=== PATIENT | male | born 1975 | race Caucasian/White ===

== ENCOUNTER 2021-11-20 11:04 | Observation (INO) | payer BC, MEDICAID, SELFPAY ==
[2021-11-20] VITALS (14 sets, daily range): BP systolic 146–165; BP diastolic 90–110; PULSE 56–80; RESP 12–18; TEMP 36.6–36.9; O2SAT 97–100; BMI 27.7
--- NOTE | ~2021-11-20 | CT_ITS ---
EXAMINATION: CTA chest DATE: 11/20/2021 16:11 INDICATION: Severe chest pain. Evaluate for thoracic aortic dissection or aneurysm TECHNIQUE: Computed tomography angiography (CTA) of the chest was performed with 100 mL Omnipaque-300 intravenous contrast timed to evaluate the pulmonary arteries. Coronal maximum intensity projection 3D-reconstructions were created by the technologist. Automated exposure control and iterative reconst ruction technique were employed. Exam dose: 450.01 mGy-cm total exam DLP. COMPARISON: 11/16/2021 PA and lateral chest FINDINGS: No thoracic aortic aneurysm or dissection. The proximal to mid abdominal aorta is of normal caliber. Normal heart size. Left main and anterior descending coronary calcifications. No pericardial or pleur al effusion. No hilar or mediastinal mass lesion or lymphadenopathy. Normal size and homogeneous enhancement of th e thyroid gland. No pulmonary infiltrate or consolidation or pulmonary mass lesion is noted. Normal morphology of the adrenal glands. Prominent degenerative disc disease including prominent posterior spurring at C6-7. Degenerative spur ring of the thoracic and lumbar spine. No suspicious osteolytic or osteoblastic lesions are noted. IMPRESSION: No evidence of thoracic aortic aneurysm or dissection Reviewed, dictated and finalized at [facility]. Reviewed, dictated and finalized at location [facility].
--- NOTE | ~2021-11-20 | XR_ITS ---
EXAMINATION: XR chest 2V DATE: 11/20/2021 11:36 INDICATION: Left-sided chest pain TECHNIQUE: PA and lateral views of the chest were obtained. COMPARISON: None FINDINGS: The lungs are clear with no focal airspace opacities, pulmonary edema, pleural effusion or pneumothor ax. The cardiomediastinal silhouette is normal. Mild to moderate thoracic spondylosis. IMPRESSION: 1. No acute cardiopulmonary disease. Reviewed, dictated and finalized at location [facility].
--- NOTE | 2021-11-20 11:06 | ECG_ITS ---
Measurements Intervals [place] Rate: 58 P: 43 [place]: 222 QRS: -23 QRSD: 122 T: -9 QT: 412 QTc: 406 Interpretive Statements SINUS BRADYCARDIA WITH FIRST DEGREE AV BLOCK BORDERLINE LEFT AXIS DEVIATION [QRS AXIS < -20] MODERATE INTRAVENTRICULAR CONDUCTION DELAY [110+ ms QRS DURATION] ABNORMAL ECG NO PREVIOUS ECG AVAILABLE FOR COMPARISON Electronically Signed On 11-20-2021 16:48:18 CDT by Terrell Del Castillo M.D.
[2021-11-20 11:27] LABS: Basophils Absolute Auto 0.1 K/mm3 (0.0-0.1); Basophils Percent Auto 0.9 % (0.2-1.2); Eosinophils Absolute Auto 0.2 K/mm3 (0-0.3); Hemoglobin 14.8 g/dL (14.0-18.0); Immature Granulocyte Absolute 0.02 K/mm3 (0.00-0.031); Immature Granulocyte Percent A 0.3 % (0-0.5); Lymphocytes Absolute Auto 2.58 K/mm3 (0.9-3.2); Lymphocytes Percent Auto 33.7 % (18.3-44.2); Mean Corpuscular HGB Conc 34.4 g/dl (32-36); Mean Corpuscular Hemoglobin 32.2 pg (26-34); Mean Corpuscular Volume 93.7 fl (80-100); Mean Platelet Volume 9.2 fl (7.4-10.4); Monocytes Absolute Auto 0.6 K/mm3 (0.1-0.6); Monocytes Percent Auto 7.2 % (2.6-8.5); Neutrophils Absolute Auto 4.3 K/mm3 (1.3-6.7); Neutrophils Percent Auto 55.9 % (45.5-73.1); Platelet Count Result 342 k/mm3 (150-375); Red Blood Count 4.59 M/mm3 (4.6-6.20); Red Cell Distribution Width 12.8 % (11.5-14.5); White Blood Count 7.7 K/mm3 (4.5-10.0)
[2021-11-20] MEDS: ASPIRIN 81 MG CHEWABLE TABLET 324 MG PO (11:42)
[2021-11-20 11:44] LABS: INR 1.1; Partial Thromboplastin Time 28.5 SECONDS (22.3-36.8); Prothrombin Time 13.3 Seconds (11.1-14.7)
[2021-11-20 11:46] LABS: Alanine Aminotransferase 17 U/L (6-50); Albumin Level 4.5 g/dL (3.5-5.1); Alkaline Phosphatase 74 U/L (38-126); Anion Gap 10 mmol/L (8-16); Aspartate Amino Transferase 19 U/L (17-59); Bilirubin,Total 0.6 mg/dL (0.2-1.3); Blood Urea Nitrogen 19 mg/dL (9-20); Calcium 8.7 mg/dL (8.4-10.2); Carbon Dioxide 25 mmol/L (22-30); Chloride 104 mmol/L (98-107); Estimated CRCL calculation 95 ml/min; Estimated Glomerular Filt Rate > 60; Glucose 126 mg/dL (65-110); Lipase 44 U/L (23-300); Potassium 3.5 mmol/L (3.4-5.0); Sodium 139 mmol/L (137-145)
[2021-11-20 11:58] LABS: Troponin I < 0.012 ng/mL (0.000-0.034)
--- NOTE | 2021-11-20 12:15 | ED.CHESTPAIN ---
HPI - Chest Pain General Chief Complaint: Chest Pain Stated Complaint: chest pain Time Seen by Provider: 11/20/21 11:35 Source: patient Mode of arrival: ambulatory Limitations: no limitations History of Present Illness HPI narrative: Patient is a 46-year-old male who presents to the ED with report of left-sided chest pain. Patient reports he has been experiencing elevated blood pressures over the last 3 days. He checks this at home. He said the highest it has been at home was 190s over 140s. He does take amlodipine, lisinopril, metoprolol daily. He has not missed any doses. He notified his primary about this and was advised to take an additional Norvasc 10mg in the morning if his blood pressure remained elevated. He did take 2 Norvasc today, 20 mg total. He denies having any chest pain over the last 3 days, but does report being woken up by the pain around 5:30 AM this morning. He describes the pain as a pressure in his left-sided chest, radiating to his left shoulder. The pain has been constant since then. Reports pain is worse with laying flat. Denies significant aggravation with exertion. Pain did begin to alleviate slightly approximately 1 hour ago. He did not take anything for this, but was given aspirin 324 mg upon arrival to the ED. He typically takes an aspirin 81 mg daily, but did not take this yet today. He denies any diaphoresis, nausea, shortness of breath associated with the pain. No abdominal pain, headache, vision changes, fever, chills, recent cough or cold symptoms, BLE pain or edema. Patient had a stress test 2 yrs ago at an outside facility, which was normal at that time. Hx of HTN, denies Hx of HLD, DM. + FHX of cardiac disease in mother. + smoking, 1 ppd. Related Data Home Medications Medication Instructions Recorded Confirmed amlodipine 10 mg tablet (Norvasc) 10 mg PO DAILY 11/20/21 11/20/21 lisinopril 10 mg tablet 10 mg PO DAILY 11/20/21 11/20/21 metoprolol succinate 25 mg 25 mg PO DAILY 11/20/21 11/20/21 tablet,extended release 24 hr Allergies Allergy/AdvReac Type Severity Reaction Status Date / Time No Known Allergies Allergy Unverified 11/20/21 11:39 Review of Systems Review of Systems: CONSTITUTIONAL: Denies fever, chills, or sweats. EYES: Denies visual changes. ENT: Denies rhinorrhea, congestion, sore throat. CARDIOVASCULAR: Reports L sided chest pressure, radiating to L shoulder. Denies palpitations or BLE edema. RESPIRATORY: Denies cough or dyspnea. GASTROINTESTINAL: Denies abdominal pain, nausea, vomiting, or diarrhea. MUSCULOSKELETAL: Denies back pain, BLE pain. NEUROLOGIC: Denies headache, numbness, or weakness. All systems reviewed & are unremarkable except as noted in HPI and below PMFSH Past Medical History Medical History Hypertension Tobacco abuse Surgical History Surgical History (Updated 11/20/21 @ 12:21 by Zoie Waldron PA-C) No pertinent past surgical history Family History Family History Mother Heart disease Social History Social History Social History: Surrogate decision maker: Mariela Valentino, mother. Code status: Full code. Smoking packs per day: 1 Smoking cigarettes per day: 20.0 Smoking status: Current every day smoker Tobacco type: cigarettes Exam Narrative: GENERAL: Well appearing, well-nourished, non-toxic, in no acute distress. HEAD: Normocephalic, atraumatic. NECK: Supple. No adenopathy, no masses. RESPIRATORY: Airway patent, respirations nonlabored. Clear to auscultation bilaterally, no rales, rhonchi, wheezing. CARDIOVASCULAR: Regular rate and rhythm without murmurs, rubs, or gallops. Peripheral pulses 2+ and equal bilaterally. ABDOMINAL: Soft, nontender, nondistended, no hepatosplenomegaly. Normoactive BS. MUSCULOSKELETAL: Moves all extremities. Strength/ROM intact withou
[2021-11-20] MEDS: NITROGLYCERIN SL 0.4 MG TABLET SUBLINGUAL (14:01)
--- NOTE | 2021-11-20 14:01 | PC.NURSE ---
Pt given 1 SL Nitro Tab at this time, rates pain a 3-4/10.
[2021-11-20 14:31] LABS: Troponin I < 0.012 ng/mL (0.000-0.034)
--- NOTE | 2021-11-20 15:24 | ECG_ITS ---
Measurements Intervals [place] Rate: 59 P: 33 [place]: 177 QRS: -12 QRSD: 126 T: -3 QT: 397 QTc: 394 Interpretive Statements SINUS BRADYCARDIA NONSPECIFIC INTRAVENTRICULAR CONDUCTION DELAY COMPARED TO ECG 11/20/2021 11:09:37 [place] INTERVAL IS NOW NORMAL Electronically Signed On 11-20-2021 16:57:38 CDT by Terrell Del Castillo M.D.
--- NOTE | 2021-11-20 15:50 | PM.IMHP ---
H&P: HPI History of Present Illness Date/Time: 11/20/21 15:50 Chief Complaint: Chest pain and elevated blood pressure Narrative: This is a 46-year-old male smoker with history of peptic ulcer, kidney stones, and hypertension who presented to the emergency department from home for evaluation of chest pain and elevated blood pressure. His blood pressures have been running in the 190s over 140s the last several days and after speaking with his primary care provider, he was advised to take an additional dose of amlodipine in the morning which has helped somewhat. This morning at about 05:30 he was wakened from sleep with a pressure-like discomfort in the left side of the chest which radiated to the left shoulder. The pain has been nearly constant since that time and seems to be worse when lying flat. Sublingual nitroglycerin given in the emergency department seemed to help the discomfort however it has returned and nitropaste is not helping with the pain at all. On exam he has significant reproducible tenderness to palpation and he was given 1 dose of IV Toradol with some improvement. He does have some mild shortness of breath but it seems as though he is not taking a deep breath as it causes the pain to be worse. He denies exertional chest pain, palpitations, resting shortness of breath, dizziness, diaphoresis, syncope, near syncope, nausea, and vomiting. No abdominal pain, epigastric pain, belching, or bloating. He denies melena and hematochezia. He has not had any recent injuries and he denies heavy lifting. Of note he had a stress test done 2 years ago which was normal, per patient report. Review of Systems Review of Systems: Twelve systems were reviewed and are negative except for as per HPI. COUNT INCLUDES THE [facility] Past Medical History Medical History (Updated 11/20/21 @ 23:30 by Clara Wu PA-C) Anxiety Hypertension Kidney stones Peptic ulcer Tobacco abuse Surgical History Surgical History No pertinent past surgical history Family History Family History Mother Heart disease Social History Social History Social History: Surrogate decision maker: Mariela Valentino, mother. Code status: Full code. Smoking packs per day: 1 Smoking cigarettes per day: 20.0 Smoking status: Current every day smoker Alcohol intake: never Substance use: never Spiritual care concerns: No Meds Home Medications and Allergies Home Medications Medication Instructions Recorded Confirmed Type amlodipine 10 mg tablet (Norvasc) 10 mg PO DAILY 11/20/21 11/20/21 History lisinopril 10 mg tablet 10 mg PO DAILY 11/20/21 11/20/21 History metoprolol succinate 25 mg 25 mg PO DAILY 11/20/21 11/20/21 History tablet,extended release 24 hr Allergies Allergy/AdvReac Type Severity Reaction Status Date / Time No Known Allergies Allergy Unverified 11/20/21 11:39 Vital Signs Vital Signs - 24 hr 11/20/21 11:08 11/20/21 11:37 11/20/21 12:53 Temperature 98.4 F Pulse Rate 63 62 56 L Respiratory Rate 18 18 12 Blood Pressure 160/102 H 164/102 H 154/97 H Pulse Oximetry 98 99 99 Oxygen Delivery Room Air 11/20/21 14:02 11/20/21 15:10 Temperature Pulse Rate 58 L 57 L Respiratory Rate 15 15 Blood Pressure 161/102 H 151/98 H Pulse Oximetry 99 99 Oxygen Delivery Exam Narrative: General: Well-developed male in the semi-[place]um[place] position in bed in no distress. Weight: 82.7 kg. BMI: 27.7. HEENT: PERRL, EOMI. Sclerae anicteric. Oral mucosa moist. Oropharynx clear. Neck: Supple. No JVD or lymphadenopathy. Respiratory: Lungs are clear to auscultation bilaterally. Cardiovascular: Regular rate and rhythm with S1-S2. Chest: Significant, reproducible tenderness to palpation over the left anterior chest and into the shoulder. Gastrointestinal: Abdomen is
[2021-11-20] MEDS: NITROGLYCERIN OINTMENT 1 INCH DOSE TRANSDERM (16:18)
[2021-11-20] MEDS: BELLADONNA ALK/PHENOB ELIX 10 ML, MAG HYDROX/ALUMINUM HYD/SIMETH 30 ML, LIDOCAINE HCL 2... PO (16:46)
--- NOTE | 2021-11-20 17:17 | ADMGEN ---
This patient, Dewayne Valentino, was admitted to IMU Room 206-01 at 1656. Patient/family oriented to hospital policies and general routines including ID bracelet, bed and alarms, visiting hours, pain management, procedures, bathroom and other care routines, personal items, smoking policy, room service/diet, and visiting hours. Information on how to activate the Rapid Response Team has been discussed. Patient/Family are encouraged to report perceived risks to care and to ask questions if they do not understand what they are told or what they should do.
[2021-11-20 17:49] LABS: Troponin I < 0.012 ng/mL (0.000-0.034)
[2021-11-20] MEDS: KETOROLAC 30 MG/ML VIAL (*BKC) IV PUSH (21:51)
[2021-11-21] VITALS (8 sets, daily range): BP systolic 125–162; BP diastolic 95–99; PULSE 49–81; RESP 16–20; TEMP 36.4–36.7; O2SAT 99
[2021-11-21 05:19] LABS: Hematocrit 41.1 % (42.0-52.0); Hemoglobin 14.5 g/dL (14.0-18.0); Mean Corpuscular HGB Conc 35.3 g/dl (32-36); Mean Corpuscular Hemoglobin 32.7 pg (26-34); Mean Corpuscular Volume 92.6 fl (80-100); Mean Platelet Volume 9.3 fl (7.4-10.4); Platelet Count Result 317 k/mm3 (150-375); Red Blood Count 4.44 M/mm3 (4.6-6.20); Red Cell Distribution Width 12.4 % (11.5-14.5); White Blood Count 8.5 K/mm3 (4.5-10.0)
[2021-11-21 05:25] LABS: Anion Gap 5 mmol/L (8-16); Blood Urea Nitrogen 17 mg/dL (9-20); Calcium 8.7 mg/dL (8.4-10.2); Carbon Dioxide 30 mmol/L (22-30); Chloride 103 mmol/L (98-107); Cholesterol 173 mg/dL (0-200); Estimated CRCL calculation 85 ml/min; Estimated Glomerular Filt Rate > 60; Glucose 94 mg/dL (65-110); HDL Direct 47 mg/dL; Magnesium 2.6 mg/dL (1.6-2.3); Potassium 3.3 mmol/L (3.4-5.0); Sodium 138 mmol/L (137-145); Triglycerides 114 mg/dL (<150)
[2021-11-21 05:35] LABS: LDL Cholesterol Direct 83 mg/dL
[2021-11-21] MEDS: METOPROLOL SUCCINATE EXT REL 25 MG TABCR PO (08:38)
[2021-11-21] MEDS: lisinopriL 10 MG TABLET PO (08:38)
[2021-11-21] MEDS: amLODIPine BESYLATE 5 MG TABLET 10 MG PO (08:38)
--- NOTE | 2021-11-21 10:34 | PM.CNCAR ---
Assessment and Plan Assessment and plan (1) Chest pain: Qualifiers: Chest pain type: unspecified Qualified Code(s): R07.9 - Chest pain, unspecified Code(s): R07.9 - Chest pain, unspecified Status: Acute Plan This is a 46-year-old man being seen with the diagnosis of chest pain. It seems clear to me that the chest pain is not mediated by myocardial ischemia as he has ongoing pain now for more than 24 hours with absolutely no evidence of acute coronary syndrome with serial troponin levels. The pain is character and behavior is not typical of her suggestive of myocardial ischemia. At this point he does not require cardiac evaluation be on this. He should be treated symptomatic Aneta in my opinion. This was this and his disposition will be deferred to the primary team. I do not anticipate following him after this consultation Terrell Del Castillo MD [facility] History of Present Illness History of Present Illness Consult date/time: 11/21/21 10:34 Consult reason: chest pain Reason For Visit: Chest Pain Narrative: This is a 46-year-old man that I am seeing at the request of the hospitalist because of chest pain. He does not have any prior history of cardiac problems of any kind. He does have longstanding hypertension for about 12-13 years. The patient was in his home where he suddenly noticed the onset of chest pain yesterday morning at about 5:00 a.m. in the morning. He states that he had the sudden onset of a sharp sometimes pressure-like sensation in the upper substernal region that radiated to the left upper quadrant of his chest. He began to have the symptoms yesterday morning he noticed that it was worse if he would take a breath in and out. The pain was moderate to severe in intensity. After have been going on for a while he came to the emergency room for evaluation at the request of his primary care was notified of the symptoms. He sees a primary care physician for management of the hypertension and his blood pressure was also rather high yesterday when he was in this kind of pain. The pain that he is describing was not affected 1 where the other by receiving nitroglycerin in the emergency room. He did receive some Toradol which did improve the pain but did not resolve it. The patient is still has the same sort of pain this morning states he takes a breath in it does hurt more. He a CT of the chest was done ruling out a thoracic aortic dissection. This was negative. He appears to be comfortable upon seeing him in the room but he does states he still has at least moderate 5/10 intensity chest pain. His troponin levels were normal in the emergency room and have remained normal x3 sets. In this setting of seeing him in consultation he normally does not have any symptoms of exertional chest pain pressure or heaviness he denies any symptoms of orthopnea PND or accumulating edema. He has not had a syncopal episode. Risk factors include of course his hypertension and cigarette smoking. He says he is under lot of stress lately because he lost his job and he is going through a divorce with his . Review of Systems Constitutional: Constitutional: Reports no additional constitutional complaints Eyes: Eyes: Reports no additional eye complaints ENT: Reports system reviewed and no additional complaints, except as documented Cardiovascular: Cardiovascular: Reports as per HPI Respiratory: Respiratory: Reports no additional respiratory complaints Gastrointestinal: Gastrointestinal: Reports no additional gastrointestinal complaints Musculoskeletal: Musculoskeletal: Reports as per HPI Integumentary/Breasts: Skin/Breast: Reports system reviewed and no additional complaints, except as docu Neurologic: Reports system reviewed and no additional complaints, except as documented Endocrine: Endocrine: Reports no additional endocrine complaints Hematologic/Lymphatic: Hematologic/Lymphatic: Reports no additional hemat
[2021-11-21] MEDS: POTASSIUM CHLORIDE 20 MEQ PACKET (FOR LIQUID) 40 MEQ PO (11:13)
[2021-11-21] MEDS: LIDOCAINE 5% PATCH 2 PATCH TRANSDERM (12:01)
--- NOTE | 2021-11-21 13:26 | PM.DS ---
DS: Admitting Diagnosis Discharge Date 11/21/2021 Admitting Diagnosis chest pain DS: Discharge Diagnosis Discharge Diagnosis (1) Chest pain: Qualifiers: Chest pain type: unspecified Qualified Code(s): R07.9 - Chest pain, unspecified Code(s): R07.9 - Chest pain, unspecified Status: Acute Assessment and Plan: Pain is reproducible on palpation of the left chest wall. He has rule out for acute coronary syndrome by serial troponins. (2) Hypertension: Code(s): I10 - Essential (primary) hypertension Status: Acute Assessment and Plan: Blood pressures were reviewed and per patient report they have been running high for the last 3 days. They have improved somewhat however he currently has on nitropaste. Continue metoprolol, lisinopril, and amlodipine. Lisinopril can be increased tomorrow if he consistently trends high. (3) Tobacco abuse: Code(s): Z72.0 - Tobacco use Status: Acute Assessment and Plan: Smoking cessation is imperative and was discussed. He declines the need for nicotine patch. DS: Summary Hospital Course Reason for hospitalization: Chief Complaint: Chest pain and elevated blood pressure Narrative: This is a 46-year-old male smoker with history of peptic ulcer, kidney stones, and hypertension who presented to the emergency department from home for evaluation of chest pain and elevated blood pressure. His blood pressures have been running in the 190s over 140s the last several days and after speaking with his primary care provider, he was advised to take an additional dose of amlodipine in the morning which has helped somewhat. This morning at about 05:30 he was wakened from sleep with a pressure-like discomfort in the left side of the chest which radiated to the left shoulder. The pain has been nearly constant since that time and seems to be worse when lying flat. Sublingual nitroglycerin given in the emergency department seemed to help the discomfort however it has returned and nitropaste is not helping with the pain at all. On exam he has significant reproducible tenderness to palpation and he was given 1 dose of IV Toradol with some improvement. He does have some mild shortness of breath but it seems as though he is not taking a deep breath as it causes the pain to be worse. He denies exertional chest pain, palpitations, resting shortness of breath, dizziness, diaphoresis, syncope, near syncope, nausea, and vomiting. No abdominal pain, epigastric pain, belching, or bloating.? He denies melena and hematochezia. He has not had any recent injuries and he denies heavy lifting. Of note he had a stress test done 2 years ago which was normal, per patient report. Hospital Course: patient presented with chest 3 sets of cardiac enzymes are negative and there are no acute changes on EKG patient was seen by music adapter and does not suspect acute coronary syndrome rather his symptoms are atypical and been persisting for 24 hours, patient is clinically stable his symptoms have improved discharge the patient home today. Time Spent with Patient Time attestation: Total time spent providing and/or coordinating discharge services: Exam Narrative: Patient is comfortable, NAD HEENT: eyes are clear and none icteric LUNGS: normal respiratory effort ABD: not distended Lower extremities: no edema SKIN: nonjaundiced Neuro: grossly intact. DS: Data Data Completed and Pending Labs on day of discharge: Labs from last 24 hours 11/21/21 11/21/21 11/20/21 04:42 04:42 17:17 WBC 8.5 RBC 4.44 L Hgb 14.5 Hct 41.1 L MCV 92.6 MCH 32.7 MCHC 35.3 RDW 12.4 Plt Count 317 MPV 9.3 Sodium 138 Potassium 3.3 L Chloride 103 Carbon Dioxide 30 Anion Gap 5 L BUN 17 Creatinine 0.90 Estim Creat Clear Calc 85 Estimated GFR > 60 Glucose 94 Calcium 8.7 Magnesium 2.6 H Troponin I < 0.012
--- NOTE | 2021-11-21 15:26 | PC.NURSE ---
Pt left off unit stable, with mom and all personal belongings. Discharge packet explained and given to pt. No events noted.
== END 2021-11-21 15:25 | disposition home or self-care (01) ==
LOC: ANHED 15:32 → ANHIMU 17:08
PROVIDERS: Physician Assistant; Admitting Provider Student in an Organized Health Care Education/Training Program; Emergency Provider Emergency Medicine; Visit Provider Family Medicine
DX: R07.9 Chest pain, unspecified (principal); I10 Essential (primary) hypertension; F17.210 Nicotine dependence, cigarettes, uncomplicated; Z87.442 Personal history of urinary calculi
CPT/HCPCS: 36415; 71046; 71275; 80048; 80053; 80061; 83690; 83735; 84484; 85025; 85027; 85610; 85730; 93005; 96374; 99285; A9270; G0378; J1885; Q9967

== ENCOUNTER 2023-06-17 15:03 | Emergency (ER) | payer OTHER, SELFPAY ==
[2023-06-17] VITALS (7 sets, daily range): BP systolic 144–185; BP diastolic 98–133; PULSE 72–106; RESP 13–20; TEMP 37.3; O2SAT 98–100
--- NOTE | ~2023-06-17 | US_ITS ---
EXAMINATION: US abdomen limited DATE: 06/17/2023 18:59 INDICATION: Right upper quadrant pain TECHNIQUE: Multiple grayscale and Doppler ultrasound images of the abdomen were obtained. COMPARISON: None available FINDINGS: Bowel gas obscures visualization of the pancreas. The liver is normal with normal echogenic ity and echotexture. No surface nodularity. Normal hepatopetal flow in the main portal vein. The gall bladder is normal with no abnormal wall thickening, pericholecystic fluid or stones. The normal commo n bile duct measures 3 mm. There was no sonographic Brown sign. IMPRESSION: 1. No sonographic correlate for the patient's symptoms. Pancreas obscured by bowel gas. Reviewed, dictated and finalized at location F. ICAL RN LIAISON IMPRESSION: 1. No sonographic correlate for the patient's symptoms. Pancreas obscured by obi wel gas.
--- NOTE | ~2023-06-17 | XR_ITS ---
XR chest 2V DATE: 06/17/2023 15:27 INDICATION: Chest pain TECHNIQUE: 2 views, AP and lateral projections COMPARISON: 11/16/2021 CTA chest 11/20/2021 2 view chest FINDINGS: Normal heart size. No hilar or mediastinal enlargement. No pulmonary infiltrate or consolid ation, pleural effusion or pulmonary vascular congestion or pneumothorax is detected. Mild degenerative spurring of the thoracic spine. IMPRESSION: No active cardiopulmonary disease Reviewed, dictated and finalized at location B. PRESS HAND
--- NOTE | 2023-06-17 15:04 | ECG_ITS ---
Measurements Intervals [place] Rate: 97 P: 55 MD: 197 QRS: -56 QRSD: 117 T: 63 QT: 356 QTc: 453 Interpretive Statements SINUS RHYTHM POSSIBLE LEFT ATRIAL ENLARGEMENT LEFT ANTERIOR FASCICULAR BLOCK BORDERLINE ST-T WAVE ABNORMALITY- HIGH LATERAL LEADS BASELINE ARTIFACT- I, III, AVR, AVL, V6 ABNORMAL ECG COMPARED TO ECG 11/20/2021 15:30:24 SINUS RHYTHM NOW PRESENT LEFT ANTERIOR FASCICULAR BLOCK NOW PRESENT Electronically Signed On 06-17-2023 15:24:23 [employer] by Vladislav Schuster D.O.
[2023-06-17 15:19] LABS: Basophils Absolute Auto 0.1 K/mm3 (0.0-0.1); Basophils Percent Auto 0.5 % (0.2-1.2); Eosinophils Absolute Auto 0.1 K/mm3 (0-0.3); Eosinophils Percent Auto 0.7 % (0-4.4); Hematocrit 45.2 % (42.0-52.0); Hemoglobin 15.9 g/dL (14.0-18.0); Immature Granulocyte Percent A 0.7 % (0-0.5); Lymphocytes Absolute Auto 2.26 K/mm3 (0.9-3.2); Lymphocytes Percent Auto 14.8 % (18.3-44.2); Mean Corpuscular HGB Conc 35.2 g/dl (32-36); Mean Corpuscular Hemoglobin 33.3 pg (26-34); Mean Corpuscular Volume 94.6 fl (80-100); Mean Platelet Volume 8.9 fl (7.4-10.4); Monocytes Absolute Auto 1.1 K/mm3 (0.1-0.6); Neutrophils Absolute Auto 11.7 K/mm3 (1.3-6.7); Neutrophils Percent Auto 76.3 % (45.5-73.1); Platelet Count Result 410 k/mm3 (150-375); Red Blood Count 4.78 M/mm3 (4.6-6.20); Red Cell Distribution Width 12.3 % (11.5-14.5); White Blood Count 15.3 K/mm3 (4.5-10.0)
[2023-06-17 15:28] LABS: Alanine Aminotransferase 21 U/L (6-50); Albumin Level 4.8 g/dL (3.5-5.1); Alkaline Phosphatase 94 U/L (38-126); Anion Gap 11 mmol/L (8-16); Aspartate Amino Transferase 23 U/L (17-59); Bilirubin,Total 0.6 mg/dL (0.2-1.3); Blood Urea Nitrogen 19 mg/dL (9-20); Calcium 9.2 mg/dL (8.4-10.2); Carbon Dioxide 25 mmol/L (22-30); Chloride 105 mmol/L (98-107); Estimated CRCL calculation 105 ml/min; Estimated Glomerular Filt Rate > 60; Glucose 108 mg/dL (65-110); INR 0.9; Lipase 616 U/L (23-300); Potassium 3.7 mmol/L (3.4-5.0); Sodium 141 mmol/L (137-145)
[2023-06-17 15:29] LABS: Partial Thromboplastin Time 28.3 SECONDS (22.3-36.8)
[2023-06-17 15:39] LABS: Troponin I < 0.012 ng/mL (0.000-0.034)
--- NOTE | 2023-06-17 15:56 | ECG_ITS ---
Measurements Intervals [place] Rate: 97 P: 36 [place]: 176 QRS: -48 QRSD: 111 T: 63 QT: 354 QTc: 450 Interpretive Statements SINUS RHYTHM POSSIBLE LEFT ATRIAL ENLARGEMENT LEFT ANTERIOR FASCICULAR BLOCK BASELINE ARTIFACT- I, III, AVR, AVL ABNORMAL ECG COMPARED TO ECG 06/17/2023 15:06:44 NO SIGNIFICANT CHANGES Electronically Signed On 06-17-2023 16:43:12 RN PICU by Vladislav Schuster D.O.
--- NOTE | 2023-06-17 17:54 | ED.CHESTPAIN ---
HPI - Chest Pain General Chief Complaint: Chest Pain Stated Complaint: chest pain Time Seen by Provider: 06/17/23 17:47 History of Present Illness HPI narrative: Patient is a 48-year-old male with history of HTN here with chest pain. Patient notes that he was sitting at his mother's house around 12:30 PM and began having left sided chest pain. He notes it is associated with some nausea and several episodes of vomiting. He notes that it seems to worsen when he takes deep breaths. He has had this type of chest pain in the past, he notes he was admitted for it the last time he was here in the hospital. He had been on a nitroglycerine drip for pain control but it did not touch the pain and it eventually self resolved. He notes that his last stress test was about 6 months ago. No prior cardiac cath. Cardiologists in the past have told him that the pain is likely due to stress. No abdominal pain. He has had a mild cough which seemed to start after the pain began. No congestion, no fever, no chills. No urinary symptoms. Related Data Home Medications Medication Instructions Recorded Confirmed amlodipine 10 mg tablet (Norvasc) 10 mg PO DAILY 11/20/21 11/20/21 lisinopril 10 mg tablet 10 mg PO DAILY 11/20/21 11/20/21 metoprolol succinate 25 mg 25 mg PO DAILY 11/20/21 11/20/21 tablet,extended release 24 hr Allergies Allergy/AdvReac Type Severity Reaction Status Date / Time No Known Allergies Allergy Verified 06/17/23 15:03 Review of Systems Review of Systems: All systems reviewed & are unremarkable except as noted in HPI and below [facility] Past Medical History Medical History (Updated 06/17/23 @ 22:30 by Anika Kelly MD) Anxiety Hypertension Kidney stones Peptic ulcer Tobacco abuse Surgical History Surgical History No pertinent past surgical history Family History Family History Mother Heart disease Social History Social History Social History: Surrogate decision maker: Mariela Chelsy, mother. Code status: Full code. Smoking packs per day: 1 Smoking cigarettes per day: 20.0 Smoking status: Current every day smoker Alcohol intake: never Substance use: never Spiritual care concerns: No Exam Narrative: GENERAL: Well-appearing, well-nourished, and in no acute distress. HEAD: Normocephalic, atraumatic. EYES: PERRLA and EOMI. ENT: Nares clear. Mucous membranes moist. NECK: Supple. CHEST: Clear to auscultation. No respiratory distress. HEART: Regular rate and rhythm. Normal peripheral pulses. ABDOMEN: Soft, nontender, nondistended. Negative Brown sign. EXTREMITIES: Normal range of motion. No edema. SKIN: Warm, dry, no rash. NEURO: No focal deficits. Alert and oriented x3. PSYCH: Normal mood and affect. Course Course Emergency Course: Chart review performed. Patient is here with chest pain. Triage vitals show HTN, tachycardic, otherwise normal. Triage workup reviewed. WBC elevated at 15.3, electrolytes normal, Initial troponin normal. Lipase elevated at 616. Patient seen evaluated, nontoxic appearing. No reproducible abdominal tenderness or chest tenderness. Awaiting repeat troponin, will add on D-dimer given pleuritic nature of the pain and his age, will additionally do ultrasound right upper quadrant given elevated lipase. Morphine and nitro ordered. D-dimer negative. Repeat troponin negative. US negative. HEART score of 2. Will reevaluate. No pain improvement with morphine or nitroglycerine. I discussed all results with patient. Advised me that all of these symptoms have occurred in the past due to his anxiety and stress. He notes he has had extensive conversations with cardiology regarding starting anti anxiety medications as this is likely contributing to his blood pressure but he has refused in the past. Agreeable
[2023-06-17] MEDS: ASPIRIN 81 MG CHEWABLE TABLET 324 MG PO (17:57)
[2023-06-17] MEDS: NITROGLYCERIN SL 0.4 MG TABLET SUBLINGUAL (18:58)
--- NOTE | 2023-06-17 19:03 | PC.NURSE ---
2nd dose of nitro administered sublingual 1902
[2023-06-17] MEDS: MORPHINE SULFATE (*CRX) 4 MG/ML INJ IV PUSH (19:04)
[2023-06-17] MEDS: ONDANSETRON INJ 4 MG/2 ML VIAL IV PUSH (19:04)
--- NOTE | 2023-06-17 19:07 | PC.NURSE ---
3rd dose of nitro administered sublingual at 1908
[2023-06-17 19:35] LABS: Troponin I < 0.012 ng/mL (0.000-0.034)
--- NOTE | 2023-06-17 21:21 | ECG_ITS ---
Measurements Intervals [place] Rate: 70 P: 46 ME: 208 QRS: -30 QRSD: 130 T: 15 QT: 409 QTc: 442 Interpretive Statements SINUS RHYTHM LEFT AXIS DEVIATION INTRAVENTRICULAR CONDUCTION DELAY BASELINE ARTIFACT- I, III, AVR, AVL, V1-V2 BORDERLINE ECG COMPARED TO ECG 06/17/2023 15:59:00 NO SIGNIFICANT CHANGES Electronically Signed On 06-18-2023 8:13:32 [employer]ICE PRESIDENT by Vladislav Schuster D.O.
[2023-06-17] MEDS: diazePAM (*CRX) 5 MG TABLET 10 MG PO (21:34)
== END 2023-06-17 22:42 | disposition home or self-care (01) ==
PROVIDERS: Emergency Provider Student in an Organized Health Care Education/Training Program
DX: R07.89 Other chest pain (principal); I10 Essential (primary) hypertension; Z87.442 Personal history of urinary calculi; Z87.11 Personal history of peptic ulcer disease; I44.4 Left anterior fascicular block; R94.31 Abnormal electrocardiogram [ECG] [EKG]; I45.9 Conduction disorder, unspecified
CPT/HCPCS: 36415; 71046; 76705; 80053; 83690; 84484; 85025; 85380; 85610; 85730; 93005; 96374; 96375; 99284; A9270; J2270; J2405